=== PATIENT | male | born 1990 | race Caucasian/White ===

== ENCOUNTER 2018-05-26 20:17 | Emergency (ER) | payer SELFPAY ==
[~2018-05-26] VITALS: Ht 162.6 cm; Wt 68.0 kg
[~2018-05-26 20:17] MED LIST: AZIT-21 PO; HYDR-3583 PO; MUPI22OI TP; SULF-222 PO; SULF1TAB35 PO; zicam
--- OUTSIDE RECORDS SUMMARY | 2018-05-26 20:22 | XMS REPORT | Continuity of Care Document ---
Author Author [facility] Organization [facility] Address Unknown Phone Unavailable Allergies There is no data. Medications There is no data. Problems Date Dx Coded Attending Type Code Diagnosis Diagnosed By 07/14/2011 Ot 305.1 07/14/2011 Ot 382.9 07/14/2011 Ot 462 07/14/2011 Ot 465.9 07/14/2011 Ot 786.2 03/15/2014 LOUANN GUZMAN Ot 873.0 03/15/2014 LOUANN GUZMAN Ot E000.8 03/15/2014 LOUANN GUZMAN Ot E849.0 03/15/2014 LOUANN GUZMAN Ot E917.9 03/29/2014 GINGER JACINTO MD Ot V58.32 05/02/2014 SHEILA ERNST APRN Ot 682.6 05/02/2014 SHEILA ERNST APRN Ot 691.8 07/18/2014 DANIEL PAEZ DO Ot 682.2 Procedures There is no data. Results There is no data. Encounters ACCT No. Visit Date/Time Discharge Status Pt. 

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
[2018-05-26 22:15] VITALS: BP 118/73
[2018-05-26] MEDS ORDERED: RX-HYDROCODONE/APAP 5/325 MG #4 TAB PK PO PRN (22:15)
== END 2018-05-26 22:15 | disposition home or self-care (01) ==
LOC: EDUNIT# 20:17 → ER 20:19
DX: S93.401A Sprain of unspecified ligament of right ankle, initial encounter (principal); S20.211A Contusion of right front wall of thorax, initial encounter; F17.200 Nicotine dependence, unspecified, uncomplicated; Z85.820 Personal history of malignant melanoma of skin; Z88.0 Allergy status to penicillin; Z88.8 Allergy status to other drugs, medicaments and biological substances; V49.40XA Driver injured in collision with unspecified motor vehicles in traffic accident, initial encounter
CPT/HCPCS: 71046; 73610